=== PATIENT | male | born 1990 | race Caucasian/White ===

== ENCOUNTER 2017-05-14 20:13 | Inpatient (IN) ==
--- NOTE | 2017-05-14 20:37 | Emergency Department Note ---
Disposition Clinical Impression: Small bowel obstruction Disposition: Admitted As Inpatient Abdominal Pain HPI - General Chief Complaint: ED Abdominal Pain Stated Complaint: Needs a Ct-From [facility] Time Seen by Provider: 05/14/17 20:18 Source: patient Limitations: no limitations Nursing Notes Reviewed: Yes Vital Signs Reviewed: Yes - History of Present Illness HPI Narrative: 18-year-old male past medical history asthma presents to the emergency department with diffuse lower abdominal pain and vomiting. He had a bilateral double inguinal hernia repair by laproscopy with Dr. Gonzalez on 05/09/17. There were no complications of surgery and the patient reports that he has done well until today. He had some nausea during the past few days, but had not vomited until today. Associated symptoms include fatigue and generalized weakness. He reports that he is having bowel movements today. He denies any leakage or drainage from the incision sites. Denies fevers, chills, chest pain, dyspnea, diarrhea, constipation, hematochezia, melena, dysuria, or hematuria. He was evaluated in urgent care earlier today, and the physician spoke with Dr. Gonzalez over the phone, and she requested that he come to the emergency department for CT abdomen and pelvis and further evaluation. Pain Scale: 7 - Related Data Home Medications Medication Instructions Recorded Confirmed Albuterol Sulfate [Proair Hfa] 2 puff IH Q4H PRN 04/25/17 05/09/17 Previous Rx's Medication Instructions Recorded Docusate [Colace] 100 mg PO BID #30 capsule 05/09/17 Ibuprofen [Motrin] 600 mg PO Q8HR PRN #20 tab 05/09/17 OxyCODONE/APAP 5/325 [Percocet 1 each PO Q4HR PRN 7 Days #40 05/09/17 5/325 MG] tablet Allergies Allergy/AdvReac Type Severity Reaction Status Date / Time Penicillins AdvReac Rash Verified 05/14/17 20:14 Sulfa (Sulfonamide AdvReac Rash Verified 05/14/17 20:14 Antibiotics) All systems ED: reviewed and negative except as stated. Review of Systems: As Per HPI Abdominal Pain PMH - Past Medical History Medical history: Reports: other Male Surgical History: Reports: Tonsillectomy, other (Ear surgeries 7) Psychiatric history: Reports: no psych history - Social History Smoking status: Current every day smoker Alcohol use: Reports: occasionally Drug use: Reports: none Physical Exam - General Limitations: no limitations General appearance: alert, in no apparent distress - Head Head exam: atraumatic, normocephalic, normal inspection - Eye Eye exam: Present: normal appearance, PERRL, EOMI. Absent: scleral icterus, conjunctival injection - ENT ENT exam: mucous membranes moist - Chest Chest inspection: Present: symmetric chest wall rise - Respiratory Respiratory exam: Present: normal lung sounds bilaterally - Cardiovascular Cardiovascular exam: Present: regular rate, normal rhythm, +S1, +S2 - Abdominal Exam Abdominal exam: Present: soft, tenderness, normal bowel sounds. Absent: distention, guarding, rebound, rigidity, Luevano's sign, Rovsing's sign, tenderness at McBurney's Point Abdominal tenderness: Present: RLQ, LLQ, suprapubic, moderate - Extremities Exam Extremities exam: Present: normal inspection, full ROM, normal capillary refill. Absent: tenderness, pedal edema, calf tenderness - Back Exam Back exam: Present: normal inspection, full ROM. Absent: tenderness, CVA tenderness (R), CVA tenderness (L), paraspinal tenderness, vertebral tenderness - Neurological Exam Neurological exam: Present: alert, oriented X3 - Skin Skin exam: Present: warm, dry, intact, normal color Course Vital Signs Temperature 98.8 F 05/14/17 20:14 Pulse Rate 74 05/14/17 20:14 Respiratory Rate 20 05/14/17 20:14 Blood Pressure 130/83 05/14/17 20:14 O2 Sat by Pulse Oximetry 100 05/14/17 20:14 Temperature 99.5 F 05/14/17 23:22 Pulse Rate 80 05/14/17 23:22 Respiratory Rate 16 05/14/17 23:22 Blood Pressure 119/73 05/14/17 23:22 O2 Sat by Pulse Oximetry 98 05/14/17 23:22 Oxygen Delivery Oxygen Delivery Room Air Abdominal Pain - MDM Narrative Medical decision making narrative: CBC shows a white count of 13. Patient is afebrile. BMP unremarkable. CT abdomen and pelvis shows concerns for early partial small bowel obstruction. The patient has vomited once here in the emergency department. He was given Zofran and fentanyl. We recommend that he get an NG tube placed, however he refused the NG tube placement. Discussed the case with Dr. Gonzalez who accepts the patient for admission. - Lab Data Lab results reviewed: Yes I reviewed the patient's lab results. Result diagrams: 05/14/17 20:29 05/14/17 20:29 Lab Results 05/14/17 05/14/17 Range/Units 20:29 20:29 WBC 13.0 H (4.3-11.1) K/mcL RBC 5.05 (4.19-5.50) M/mcL Hgb 16.3 (12.9-16.9) g/dL Hct 46.1 (37.5-50.1) % MCV 91.3 (83.0-100.0) fL MCH 32.3 (28.0-33.3) pg MCHC 35.4 (31.6-35.5) g/dL RDW 12.1 (11.5-14.5) % Plt Count 243 (140-400) K/mcL MPV 11.2 (9.4-12.4) fL Immature Gran % 0.3 (0-4) % Seg Neutrophils % 89.8 % Lymphocytes % 5.8 % Monocytes % 3.5 % Eosinophils % 0.4 % Basophils % 0.2 % Neutrophils # 11.7 H (1.6-8.9) K/mcL Lymphocytes # 0.8 (0.6-4.6) K/mcL Monocytes # 0.5 (0.0-1.3) K/mcL Eosinophils # 0.1 (0.0-0.6) K/mcL Basophils # 0.0 (0.0-0.2) K/mcL Sodium 136 (136-145) mEq/L Potassium 4.1 (3.5-5.1) mEq/L Chloride 100 (98-107) mEq/L Carbon Dioxide 25 (23-29) mEq/L BUN 15 (6-20) mg/dL Creatinine 0.88 (0.70-1.30) mg/dL Est GFR ( Amer) > 60 (> 60) Est GFR (Non-Af Amer) > 60 (> 60) BUN/Creatinine Ratio 17 (6-26) Glucose 102 (70-105) mg/dL Calculated Osmolality 283 (280-300) Calcium 9.7 (8.6-10.3) mg/dL - Radiology Data Radiology results reviewed: Yes I reviewed the patient's radiology results. CT abdomen and pelvis shows concern for early partial small bowel obstruction. Attestation Statement - Attestation Attestation: I, Cosme Jones, examined this patient and my medical decision-making was reviewed with the DISASTER RECOVERY MANAGER/PA/Advanced Practice Nurse/Resident Physician. I agree with the documented findings, disposition and treatment plan as described except to the extent set forth below. 26-year-old male presents emergency Department with concerns of abdominal pain, nausea, vomiting. Patient had a bilateral inguinal hernia repair by Dr. Post within the past week. Patient denies hematochezia or melena however he does state that he had a bowel movement today. Patient vomited once in emergency department. Vital signs stable at this time. CT of the abdomen and pelvis to rule out small bowel obstruction versus ileus is pending at this time.
[2017-05-14 21:00] LABS: BUN/Creatinine Ratio 17 (6-26); Blood Urea Nitrogen 15 mg/dL (6-20); Calcium 9.7 mg/dL (8.6-10.3); Carbon Dioxide 25 mEq/L (23-29); Chloride 100 mEq/L (98-107); Glucose 102 mg/dL (70-105); Osmolality,Calculated 283 (280-300); Potassium 4.1 mEq/L (3.5-5.1); Sodium 136 mEq/L (136-145); eGFR For African Americans > 60 (> 60); eGFR For Non-African Americans > 60 (> 60)
[2017-05-14] MEDS ORDERED: Ondansetron 4 MG/2 ML VIAL IVP ONE (21:49)
[2017-05-14] MEDS ORDERED: *HR* FentaNYL (PF) 100 MCG/2 ML VIAL IVP ONE (21:49)
[2017-05-14] MEDS ORDERED: 0.9 % Sodium Chloride 1,000 ML IVC ONE (21:49)
[2017-05-14 22:14] LABS: Basophils % 0.2 %; Eosinophils # 0.1 K/mcL (0.0-0.6); Eosinophils % 0.4 %; Hematocrit 46.1 % (37.5-50.1); Hemoglobin 16.3 g/dL (12.9-16.9); Immature Granulocytes % 0.3 % (0-4); Lymphocytes # 0.8 K/mcL (0.6-4.6); Lymphocytes % 5.8 %; Mean Corpuscular HGB Conc 35.4 g/dL (31.6-35.5); Mean Corpuscular Hemoglobin 32.3 pg (28.0-33.3); Mean Corpuscular Volume 91.3 fL (83.0-100.0); Mean Platelet Volume 11.2 fL (9.4-12.4); Monocytes # 0.5 K/mcL (0.0-1.3); Monocytes % 3.5 %; Neutrophils # 11.7 K/mcL (1.6-8.9); Platelet Count 243 K/mcL (140-400); Red Blood Count 5.05 M/mcL (4.19-5.50); Red Cell Distribution Width 12.1 % (11.5-14.5); Segmented Neutrophils % 89.8 %
[2017-05-14] MEDS ORDERED: OXYCODONE Oral CONC 10 MG/0.5 ML ORAL.SYG SL PRN (23:41)
[2017-05-14] MEDS ORDERED: *HR* Promethazine 25 MG/ML VIAL IVP PRN (23:43)
[2017-05-15] MEDS: 0.9 % Sodium Chloride 1,000 ML IVC SCH ×4 (01:02→18:52)
--- NOTE | 2017-05-15 07:48 | General Surg History&Physical ---
<LarsnormanMelita junior H - Last Filed: 05/15/17 07:57> Date of Encounter: 05/15/17 Time of Encounter: 07:48 Assessment and Plan (1) Partial small bowel obstruction Current Visit: Yes Status: Acute 26-year-old male s/p robotic repair of right and left indirect inguinal hernias with mesh on 05/09/2017 who presents with lower abdominal pain, nausea, and vomiting due to partial small bowel obstruction. -NG tube -NPO -Anti-emetics -Pain control -Will discuss operative intervention with Dr. Gonzalez. Possibly today. The assessment and plan as outlined above was discussed with the patient and/or family members who expressed understanding and agreement. All questions were answered. (2) Abdominal pain Current Visit: No Status: Acute See management as above. The assessment and plan as outlined above was discussed with the patient and/or family members who expressed understanding and agreement. All questions were answered. Qualifiers: Abdominal location: left lower quadrant Qualified Code(s): R10.32 - Left lower quadrant pain (3) Nausea & vomiting Current Visit: Yes Status: Acute See management above. The assessment and plan as outlined above was discussed with the patient and/or family members who expressed understanding and agreement. All questions were answered. Qualifiers: Vomiting type: unspecified Vomiting Intractability: unspecified Qualified Code(s): R11.2 - Nausea with vomiting, unspecified (4) Asthma Current Visit: Yes Status: Chronic No acute exacerbation. Stable. The assessment and plan as outlined above was discussed with the patient and/or family members who expressed understanding and agreement. All questions were answered. Qualifiers: Asthma severity: unspecified severity Asthma persistence: unspecified Asthma complication type: unspecified Qualified Code(s): J45.909 - Unspecified asthma, uncomplicated History of Present Illness Chief complaint: Abdominal pain cause, nausea and vomiting. HPI: Mr. Brunner is a 26 year old male with past medical history of asthma who presented to [facility] on 05/14/2017 with complaints of lower abdominal pain, nausea, and vomiting. Patient states he woke up Tuesday morning with lower abdominal pain, left worse than right, and nausea and vomiting. This persisted throughout the day. He attempted to eat some granola bars which was unsuccessful. At around 8:00 in the evening, he presented to [facility] emergency department. In the emergency department , CT of the abdomen and pelvis revealed focal narrowing in the distal small bowel near the site of the right hernia repair. The proximal bowel was noted to be mildly dilated and thickened. Concerns for early partial small bowel obstruction versus enteritis. Small amount of free fluid in the pelvis. No signs of pneumoperitoneum. He had an NG tube placed and was admitted to the hospital. Mr. Brunner reporting subjective fevers during periods of emesis. He is denying any blood in his vomit or coffee-ground appearance. He is denying any diarrhea, melena, or hematochezia. He denies urinary symptoms such as dysuria or inability to initiate urination. He denies any chest pain, shortness of breath, palpitations, diaphoresis, cough, or night sweats. Mr. Brunner underwent a robotic repair of right and left indirect hernias with mesh on 05/09/[address] Gonzalez. He reports he tolerated that procedure well. Upon evaluation this morning, patient is resting comfortably. He states his nausea has improved with the NG tube. He states his pain is well controlled. Past Med Surg Social Fam HX - Past Medical History Attestation: Yes The following information was validated with the patient. Source: patient Medical history: asthma, other Psychiatric history: no psych history - Past Surgical History Surgical History: other (Tonsillectomy, adenoidectomy, ear surgery) - Social History Smoking Status: Current every day smoker Smokeless Tobacco Status: No Alcohol use: occasionally Drug use: none Medications and Allergies Albuterol Sulfate [Proair Hfa] 2 puff IH Q4H PRN 04/25/17 [History] Docusate [Colace] 100 mg PO BID #30 capsule 05/09/17 [Rx] Ibuprofen [Motrin] 600 mg PO Q8HR PRN #20 tab 05/09/17 [Rx] OxyCODONE/APAP 5/325 [Percocet 5/325 MG] 1 each PO Q4HR PRN 7 Days #40 tablet [Rx] 3 Allergy/AdvReac Type Severity Reaction Status Date / Time Penicillins AdvReac Rash Verified 05/14/17 20:14 Sulfa (Sulfonamide AdvReac Rash Verified 05/14/17 20:14 Antibiotics) Review of Systems All systems PM: The remainder of the systems were reviewed and are negative - Constitutional fever(s), no night sweats - Cardiovascular no chest pain, no dyspnea, no irregular heart rhythm, no lightheadedness, no rapid heart rate - Gastrointestinal abdominal pain, nausea, vomiting, no diarrhea, no hematemesis, no hematochezia, no loose stools, no melena - Genitourinary no dysuria, no urinary frequency, no urinary hesitancy - Musculoskeletal no abnormal gait, no numbness - Integumentary no erythema, no jaundice - Neurological no numbness, no radicular pain General Surgery Exam Initial Vital Signs Temp Pulse Resp BP Pulse Ox 98.8 F 74 20 130/83 100 05/14/17 20:14 05/14/17 20:14 05/14/17 20:14 05/14/17 20:14 05/14/17 20:14 - General physical appearance well developed, well nourished, no distress, moderate pain - Eyes normal ocular movement - Respiratory normal expansion, normal respiratory effort, clear to auscultation - Cardiovascular Cardiovascular exam: Present: RRR, no murmurs/rubs/gallops - Abdomen Abdomen general surgery: Present: bowel sounds present, soft, surgical scars. Absent: guarding, rebound, rigid Abdominal Tenderness: Present: LLQ Hernia: Present: none - Incision Incision: Present: clean and dry, intact - Integumentary Integumentary general surgery: Present: warm and dry, no abnormal pigmentation - Neurologic Present: CN 2-12 grossly intact, normal coordination - Musculoskeletal Present: normal posture - Psychiatric Psychiatric general surgery: Present: A&Ox3, speech is normal, memory intact Results - Labs 05/14/17 20:29 05/14/17 20:29 Abnormal lab results WBC 13.0 K/mcL (4.3-11.1) H 05/14/17 20:29 Neutrophils # 11.7 K/mcL (1.6-8.9) H 05/14/17 20:29 All other labs normal. <Ellen Gonzalez - Last Filed: 05/15/17 10:39> Date of Encounter: 05/15/17 Assessment and Plan (1) Abdominal pain Current Visit: No Status: Acute The assessment and plan as outlined above was discussed with the patient and/or family members who expressed understanding and agreement. All questions were answered. prn pain control, appears well controlled Qualifiers: Abdominal location: left lower quadrant Qualified Code(s): R10.32 - Left lower quadrant pain (2) Small bowel obstruction Current Visit: Yes Status: Acute The assessment and plan as outlined above was discussed with the patient and/or family members who expressed understanding and agreement. All questions were answered. patient with acute sbo, unsure of etiology - if due to inflammation due to surgery, due to hernia repair will plan diagnostic laparoscopy/robotic, possible open, risks and benefits discussed and he wishes to proceed npo ivf hydration prn pain control abx in OR gi/dvt prophylaxis continue ngt LIWS (3) Nausea & vomiting Current Visit: Yes Status: Acute The assessment and plan as outlined above was discussed with the patient and/or family members who expressed understanding and agreement. All questions were answered. prn antiemetics continue ngt LIWS Qualifiers: Vomiting type: unspecified Vomiting Intractability: unspecified Qualified Code(s): R11.2 - Nausea with vomiting, unspecified History of Present Illness HPI: Mr. Brunner is a 26 year old male who underwent a bilateral robotic inguinal hernia repair about 6 days ago by myself. He reports that yesterday he had acute onset of lower abdominal pain sharp which progressively got worse throughout the day. He started having nausea and emesis as well. He feels feverish with emesis. He went to an urgent care and they called and I instructed them to send him to the ED for imaging. CT scan showed small bowel obstruction with narrowing of small bowel near RLQ. NGT was placed when patient got to the floor and patient has had some relief but continues to have RLQ pain. Some nausea but no further emesis. No fevers. No dysuria. Passed flatus and had bm yesterday, no flatus today Past Med Surg Social Fam HX - Past Surgical History Surgical History: herniorrhaphy (robotic bilateral inguial hernia repair 05-09-17) , other - Family History Grandmother History Unknown: Yes Review of Systems All systems PM: reviewed and no additional remarkable complaints except as stated All systems PM: The remainder of the systems were reviewed and are negative General Surgery Exam Initial Vital Signs Temp Pulse Resp BP Pulse Ox 98.8 F 74 20 130/83 100 05/14/17 20:14 05/14/17 20:14 05/14/17 20:14 05/14/17 20:14 05/14/17 20:14 - General physical appearance well developed, well nourished, moderate distress, moderate pain - Eyes PERRL, normal ocular movement - ENT normal mucosa, normocephalic - Neck trachea midline - Respiratory normal expansion, clear to auscultation - Cardiovascular Cardiovascular exam: Present: RRR - Abdomen Abdomen general surgery: Present: bowel sounds present, soft, tender - Incision Incision: Present: clean and dry, intact - Integumentary Integumentary general surgery: Present: warm and dry, no abnormal pigmentation - Neurologic Present: CN 2-12 grossly intact - Musculoskeletal Present: normal posture - Psychiatric Psychiatric general surgery: Present: A&Ox3, speech is normal Results - Labs 05/15/17 07:16 05/15/17 07:16 Short CBC 05/15/17 05/14/17 Range/Units 07:16 20:29 WBC 12.2 H 13.0 H (4.3-11.1) K/mcL Hgb 14.3 D 16.3 (12.9-16.9) g/dL Hct 40.6 46.1 (37.5-50.1) % Plt Count 234 243 (140-400) K/mcL Neutrophils # 9.5 H 11.7 H (1.6-8.9) K/mcL BMP 05/15/17 05/14/17 Range/Units 07:16 20:29 Sodium 139 136 (136-145) mEq/L Potassium 3.8 4.1 (3.5-5.1) mEq/L Chloride 104 100 (98-107) mEq/L Carbon Dioxide 25 25 (23-29) mEq/L BUN 16 15 (6-20) mg/dL Creatinine 0.83 0.88 (0.70-1.30) mg/dL Glucose 94 102 (70-105) mg/dL Calcium 8.8 9.7 (8.6-10.3) mg/dL Vital Signs Temp Pulse Resp BP Pulse Ox 05/15/17 09:00 98 05/15/17 06:40 98.5 F 65 14 127/65 98 05/15/17 04:11 98.7 F 61 16 117/71 97 05/14/17 23:22 99.5 F 80 16 119/73 98 05/14/17 20:14 98.8 F 74 20 130/83 100 Intake and Output 05/14/17 05/15/17 05/15/17 22:59 07:59 15:59 Intake Total 1000 / 1000 Output Total Balance 1000 / 1000 Intake: IV Fluids 1000 / 1000 0.9 % Sodium Chloride 1,000 ML 1000 / 1000 @ 9999 mls/hr IVC .Q6M ONE Rx#: [id number] Oral Output: Urine Gastric Drainage Other: # Voids Weight Blood Glucose* - Attending Attestation I examined this patient and my medical decision-making was reviewed with the Resident Physician. I agree with the documented findings, disposition and treatment plan as described except to the extent set forth below.
--- NOTE | 2017-05-15 08:07 | Anesthesia Evaluation PreOp ---
Date of Encounter: 05/15/17 Time of Encounter: 10:16 - Past History Planned Operation: Right diagnostic laparoscopy Pulmonary History: Smoker, Asthma BI TECHNICAL LEAD History: Denies Any Significant HX Other Medical History: Denies Any Significant HX Anesthesia History: No Prior Anesthetic Complications, Past Anesthesia Alcohol Use: occasionally Drug use: none Medications and Allergies Albuterol Sulfate [Proair Hfa] 2 puff IH Q4H PRN 04/25/17 [History] Docusate [Colace] 100 mg PO BID #30 capsule 05/09/17 [Rx] Ibuprofen [Motrin] 600 mg PO Q8HR PRN #20 tab 05/09/17 [Rx] OxyCODONE/APAP 5/325 [Percocet 5/325 MG] 1 each PO Q4HR PRN 7 Days #40 tablet [Rx] 3 Allergy/AdvReac Type Severity Reaction Status Date / Time Penicillins AdvReac Rash Verified 05/14/17 20:14 Sulfa (Sulfonamide AdvReac Rash Verified 05/14/17 20:14 Antibiotics) - Meds/Allergy Pre-op Review Medications Reviewed: Yes Allergies Reviewed: Yes Beta Blockers on Current Med List: No Anesthesia Results - Labs 05/15/17 07:16 05/15/17 07:16 Anesthesia Exam Last Vital Signs Temp 98.5 F 05/15/17 06:40 Pulse 65 05/15/17 06:40 Resp 14 05/15/17 06:40 BP 127/65 05/15/17 06:40 Pulse Ox 98 05/15/17 06:40 Weight: 55 kg - HEENT Pupil (Motor): Pupils equal, EOMI Mallampati: II Teeth: Poor dentition Oral Opening: Greater than 3 - BI TECHNICAL LEAD LOC: Oriented - Cardiac Rhythm: Regular Murmur: None - Pulmonary Breath Sounds: bilateral Clear Respiratory Effort: Symmetrical Anesthesia Assess/Plan ASA Score: 2 Modified Daija Scale for Level of Consciousness: Cooperative, oriented, and tranquil Anesthetic Plan: General Monitoring Plan: Standard Monitors Recovery Plan: PACU
[2017-05-15 08:26] LABS: BUN/Creatinine Ratio 19 (6-26); Blood Urea Nitrogen 16 mg/dL (6-20); Calcium 8.8 mg/dL (8.6-10.3); Carbon Dioxide 25 mEq/L (23-29); Chloride 104 mEq/L (98-107); Glucose 94 mg/dL (70-105); Osmolality,Calculated 289 (280-300); Potassium 3.8 mEq/L (3.5-5.1); Sodium 139 mEq/L (136-145); eGFR For African Americans > 60 (> 60); eGFR For Non-African Americans > 60 (> 60)
[2017-05-15 08:36] LABS: Basophils % 0.4 %; Eosinophils % 1.1 %; Hematocrit 40.6 % (37.5-50.1); Immature Granulocytes % 0.3 % (0-4); Lymphocytes % 12.2 %; Mean Corpuscular HGB Conc 35.2 g/dL (31.6-35.5); Mean Corpuscular Hemoglobin 31.8 pg (28.0-33.3); Mean Corpuscular Volume 90.4 fL (83.0-100.0); Mean Platelet Volume 10.7 fL (9.4-12.4); Monocytes % 8.4 %; Platelet Count 234 K/mcL (140-400); Red Blood Count 4.49 M/mcL (4.19-5.50); Segmented Neutrophils % 77.6 %
[2017-05-15 08:37] LABS: Basophils # 0.1 K/mcL (0.0-0.2); Eosinophils # 0.1 K/mcL (0.0-0.6); Lymphocytes # 1.5 K/mcL (0.6-4.6); Neutrophils # 9.5 K/mcL (1.6-8.9)
[2017-05-15 08:42] LABS: Hemoglobin 14.3 g/dL (12.9-16.9)
[2017-05-15] MEDS ORDERED: Clindamycin 900 MG/50 ML 900 MG/50 ML IV.SOLN IVPB ONE ×2 (10:05→10:18)
[2017-05-15] MEDS ORDERED: Albuterol 2.5 MG/3 ML NEBULIZER ONE (10:07)
[2017-05-15] MEDS ORDERED: *HR* Midazolam HCl 2 MG/2 ML VIAL ONE (10:12)
[2017-05-15] MEDS ORDERED: *HR* FentaNYL (PF) 100 MCG/2 ML VIAL ONE ×2 (10:12→11:18)
[2017-05-15] MEDS ORDERED: *HR* Propofol 200 MG/20 ML VIAL IVP ONE ×2 (10:12→10:58)
[2017-05-15] MEDS ORDERED: Lidocaine -MPF 2% 2 ML VIAL ONE (10:14)
[2017-05-15] MEDS ORDERED: *HR* Rocuronium Bromide 50 MG/5 ML VIAL ONE (10:18)
[2017-05-15] MEDS ORDERED: *HR* Promethazine 25 MG/ML VIAL IVP PRN ×2 (10:22→13:08)
[2017-05-15] MEDS ORDERED: *HR* OxyCODONE Immed Rel 5 MG TABLET PO PRN (10:22)
[2017-05-15] MEDS ORDERED: *HR* FentaNYL (PF) 100 MCG/2 ML VIAL IVP PRN (10:23)
[2017-05-15] MEDS ORDERED: MORPHINE SUL Oral CONC 10 MG/0.5 ML ORAL.SYG SL PRN ×2 (10:23→13:08)
[2017-05-15] MEDS ORDERED: Neostigmine Methylsulfate 3 MG/3 ML SYRINGE ONE (11:00)
[2017-05-15] MEDS ORDERED: Dexamethasone 4 MG/ML VIAL ONE (11:00)
[2017-05-15] MEDS ORDERED: Ondansetron 4 MG/2 ML VIAL ONE ×2 (11:00→12:52)
[2017-05-15] MEDS ORDERED: *HR* PHENYLEPHRINE 1,000 MCG/10 ML SYRINGE IVP ONE (11:03)
[2017-05-15] MEDS ORDERED: Ketorolac 30 MG/ML VIAL ONE (11:44)
[2017-05-15] MEDS ORDERED: *HR* Succinylcholine 200 MG/10 ML VIAL IVP ONE (12:49)
--- NOTE | 2017-05-15 13:01 | Operative Note ---
Date of procedure: 05/15/17 Pre-op diagnosis: small bowel obstruction Post-op diagnosis: other (peritoneal hernia hernia causing small bowel obstruction) Procedure: Robotic diagnostic laparoscopy, reduction peritoneal hernia, repair peritoneal hernia with mesh Complications: none immediate Anesthesia: GETA, local Local Anesthetics: 0.5% Sensorcaine HCL SubQ (cc) (18) Surgeon: Ellen Gonzalez Was there an school health assistant present: Yes Assisted Living Administrator: Verito Matias Estimated blood loss (cc): 5 Urine output (cc): 180 Specimen: none Condition: stable Disposition: PACU Procedure in Detail: Patient was brought to the operating suite and placed supine on the operating table. Sign in was performed and everyone was in agreement. Anesthesia was induced and patient was endotracheally intubated by anesthesia without incident. His abdomen and bilateral groin were shaved. His abdomen was prepped and draped in the usual sterile fashion. Timeout was performed again everyone was in agreement. An incision of the left upper quadrant through the previous incision site was made with an 11 blade. A Veress needle was placed through this and a water drop test confirmed placement and the abdomen was insufflated. We entered the abdomen with a 5 mm 0 degree laparoscope on an XL trocar. The area under entry was visualized there was no apparent bleeding or bowel injury. The patient was placed in Trendelenburg position. A loop of small bowel was adherent in the right groin area at the previous robotic inguinal hernia repair. The upper midline incision from the previous surgery was opened with an 11 blade. A 12 mm port was placed through this under direct visualization. The small bowel was grasped with a laparoscopic DeBakey and freely and easily came off the abdominal wall in the right groin. There was a circular hole in the peritoneum about 2 cm in size that the small bowel had herniated through, but the mesh and previous hernia repair otherwise were intact. It appeared that only a portion of the wall had herniated through the peritoneum causing the obstruction. The small bowel was evaluated and although slightly inflamed there were no signs of ischemia, no signs of bowel injury. Due to inflammation the omentum was not giving and was unable to be pulled together to close the peritoneal defect. A 8 mm robotic port was placed in the right upper quadrant to the previous incision site after first incising the skin with an 11 blade. The left upper quadrant 5 mm port was exchanged for an 8 mm robotic port under direct visualization. The patient was placed in steeper Trendelenburg position. The robot was brought over the patient's abdomen and docked. A trimmed 9 cm round [employer] mesh was placed into the abdominal cavity with an 0 Vicryl stitch tied to the superior aspect. The mesh was then sutured circumferentially to the peritoneum covering the peritoneal defect. Any excess mesh was trimmed with the robotic scissors. The suture and trimmed mesh pieces were removed from the peritoneal cavity. The patient was placed in reverse Trendelenburg and omentum was brought over the small bowel covering the mesh. All lap and instrument counts were correct at the end of the case. The patient tolerated the procedure well. He was taken to PACU in stable condition after being awoken by anesthesia and extubated in the OR.
[2017-05-15] MEDS ORDERED: OXYCODONE Oral CONC 10 MG/0.5 ML ORAL.SYG SL PRN (13:08)
[2017-05-15] MEDS ORDERED: Naloxone 0.4 MG/ML INJ IVP PRN (13:08)
[2017-05-15] MEDS ORDERED: Ondansetron 4 MG/2 ML VIAL IVP PRN (13:08)
[2017-05-15] MEDS ORDERED: 0.9 % Sodium Chloride 500 ML ONE (13:46)
--- NOTE | 2017-05-15 13:53 | Anesthesia Evaluation Post Op ---
Date of Encounter: 05/15/17 Time of Encounter: 13:50 - Vital Signs Vital Signs: Last Vital Signs Temp 98.7 F 05/15/17 13:38 Pulse 75 05/15/17 13:38 Resp 16 05/15/17 13:38 BP 119/66 05/15/17 13:38 Pulse Ox 98 05/15/17 13:38 - Lungs Lungs: Clear Ascult./Percussion - Airway Airway: Non-obstructed - Cardiovascular Regular Rate - Mental Status Mental Status: Alert & Oriented, Answers Appropriately - Pain Pain Scale: 3 - Nausea Vomiting Nausea Vomiting: Not Present - Hydration Hydration: NPO - Discharge PostOp Status: Transfer Patient to floor
[2017-05-15] MEDS: Meropenem 1,000 MG in Water for inj. (sterile) 20 ML 10 ML IVP SCH ×2 (16:14→23:04)
[2017-05-15 18:23] LABS: Basophils % 0.2 %; Eosinophils % 0.1 %; Hematocrit 36.8 % (37.5-50.1); Hemoglobin 13.1 g/dL (12.9-16.9); Immature Granulocytes % 0.2 % (0-4); Lymphocytes # 0.8 K/mcL (0.6-4.6); Lymphocytes % 7.4 %; Mean Corpuscular HGB Conc 35.6 g/dL (31.6-35.5); Mean Corpuscular Hemoglobin 32.3 pg (28.0-33.3); Mean Corpuscular Volume 90.9 fL (83.0-100.0); Mean Platelet Volume 10.4 fL (9.4-12.4); Monocytes # 0.7 K/mcL (0.0-1.3); Monocytes % 6.3 %; Neutrophils # 9.5 K/mcL (1.6-8.9); Platelet Count 201 K/mcL (140-400); Red Blood Count 4.05 M/mcL (4.19-5.50); Red Cell Distribution Width 12.2 % (11.5-14.5); Segmented Neutrophils % 85.8 %
[2017-05-16] MEDS: 0.9 % Sodium Chloride 1,000 ML IVC SCH (04:50)
[2017-05-16 06:07] LABS: Basophils # 0.1 K/mcL (0.0-0.2); Basophils % 0.4 %; Eosinophils # 0.3 K/mcL (0.0-0.6); Eosinophils % 2.4 %; Hematocrit 36.2 % (37.5-50.1); Hemoglobin 12.5 g/dL (12.9-16.9); Immature Granulocytes % 0.3 % (0-4); Lymphocytes # 2.6 K/mcL (0.6-4.6); Lymphocytes % 20.8 %; Mean Corpuscular HGB Conc 34.5 g/dL (31.6-35.5); Mean Corpuscular Hemoglobin 32.1 pg (28.0-33.3); Mean Corpuscular Volume 92.8 fL (83.0-100.0); Mean Platelet Volume 10.8 fL (9.4-12.4); Monocytes # 1.4 K/mcL (0.0-1.3); Monocytes % 11.1 %; Platelet Count 179 K/mcL (140-400); Red Cell Distribution Width 12.5 % (11.5-14.5)
[2017-05-16 06:24] LABS: BUN/Creatinine Ratio 22 (6-26); Blood Urea Nitrogen 17 mg/dL (6-20); Calcium 8.4 mg/dL (8.6-10.3); Carbon Dioxide 25 mEq/L (23-29); Chloride 107 mEq/L (98-107); Glucose 91 mg/dL (70-105); Magnesium 1.9 mg/dL (1.6-2.6); Osmolality,Calculated 293 (280-300); Phosphorous 2.5 mg/dL (2.7-4.5); Potassium 3.8 mEq/L (3.5-5.1); Sodium 141 mEq/L (136-145); eGFR For African Americans > 60 (> 60); eGFR For Non-African Americans > 60 (> 60)
[2017-05-16] MEDS: Meropenem 1,000 MG in Water for inj. (sterile) 20 ML 10 ML IVP SCH (08:07)
[2017-05-16] MEDS: Pantoprazole 40 MG VIAL IVP SCH (08:07)
--- NOTE | 2017-05-16 10:07 | General Surgery Progress Note ---
Date of Encounter: 05/16/17 Time of Encounter: 10:07 - Assessment and Plan (1) Partial small bowel obstruction Current Visit: Yes Status: Acute Date of procedure: 05/15/17 Pre-op diagnosis: small bowel obstruction Post-op diagnosis: other (peritoneal hernia hernia causing small bowel obstruction) Procedure: #1Robotic diagnostic laparoscopy, #2 reduction peritoneal hernia, # 3 repair peritoneal hernia with mesh Complications: none immediate POD #1 as above. Abdominal exam is WNL; gastric output since Midnight aprox 18ML /hr. Denies n/v. Endorses flatus and well controlled abdominal pain. No distention. Plan: Clamp NG and trial clears. If he tolerates, will likely pull NG later today and advance diet Ambulate in halls TID Up to chair for all meals and at least TID continue G.I. and DVT prophylaxis. Continue supportive care and discomfort management. Continue Meropenem per IV Repeat AM labs IS Q1H while awake (2) Postoperative complication Current Visit: Yes Status: Acute Per operative notes, A loop of small bowel was adherent in the right groin area at the previous robotic inguinal hernia repair. There was a circular hole in the peritoneum about 2 cm in size that the small bowel had herniated through, but the mesh and previous hernia repair otherwise were intact. It appeared that only a portion of the wall had herniated through the peritoneum causing the obstruction. The small bowel was evaluated and although slightly inflamed there were no signs of ischemia, no signs of bowel injury. Due to inflammation the omentum was not giving and was unable to be pulled together to close the peritoneal defect. A trimmed 9 cm round [employer] mesh was placed into the abdominal cavity with an 0 Vicryl stitch tied to the superior aspect. See a/p above for surgical procedure and recommendations Qualifiers: Surgical complication system/body Area: digestive system Surgical complication type: intestinal obstruction Intestinal obstruction extent: partial Qualified Code(s): K91.31 - Postprocedural partial intestinal obstruction Subjective Patient reports: no new complaints, feels better, still having pain, pain is less, voiding w/o difficulty, flatus, no bowel movement, afebrile Narrative: Denies nausea. States he started passing gas this am around 1:30 am and started small but has "sounded like trumpets" a couple times this morning. Objective Vital Signs - Last 8 Hours Temp Pulse Resp BP Pulse Ox 03/12/18 06:54 97.9 F 68 18 122/70 97 05/16/17 04:55 98.3 F 64 14 129/75 97 Intake and Output 05/15/17 05/16/17 05/16/17 23:59 07:59 15:59 Intake Total 20 1000 / 1000 10 / 10 Output Total 0 / 0 500 / 500 Balance / 20 500 / 500 10 / 10 Intake: IV Fluids 1000 / 1000 10 / 10 0.9 % Sodium Chloride 1,000 ML 1000 / 1000 @ 100 mls/hr IVC .Q10H [facility] Rx#: [id number] Merrem 1,000 MG In Water for inj. (sterile) 10 ML @ 200 mls/ hr IVP Q8HR [facility] Rx#:[id number] Oral 0 / 0 0 / 0 0 / 0 Output: Urine 0 / 0 300 / 300 Gastric Drainage 200 / 200 Other: Meal NPO Percent of Meal Consumed 0% Weight 50.8 kg Blood Glucose* 113 94 Patient Weight 05/16/17 23:59 Weight 50.8 kg VITAL SIGNS: Reviewed. See [facility] GENERAL: In no apparent distress. HEENT: Normocephalic, atraumatic, pupils are equal and reactive, extraocular motions intact, oropharynx is pink and moist, there is no neck adenopathy or JVD noted. CHEST/RESPIRATORY: The thorax is free from signs of trauma. Lung sounds: clear to auscultation, normal respiratory effort CARDIAC: Regular rate and rhythm. Normal S1 and S2, without murmurs, gallops, or rubs. VASCULAR: No Edema. 2+ peripheral pulses. ABDOMEN: soft, active bowel sounds, nondistended, no abnormal discoloration. INCISION: Surgical incision is clean, dry, and intact. There are no signs of cellulitis or infection noted. WOUNDS/DRAINS: NG tube noted with 200 ML bilious output since Midnight. MUSCULOSKELETAL: Good range of motion of all major joints. Extremities without clubbing, cyanosis or edema. NEUROLOGIC EXAM: Alert and oriented x 3. Speech normal. Follows commands. PSYCHIATRIC: Mood normal. SKIN: No rash or lesions. - Labs 05/16/17 05:26 05/16/17 05:26 Diabetes panel 05/16/17 Range/Units 05:26 Sodium 141 (136-145) mEq/L Potassium 3.8 (3.5-5.1) mEq/L Chloride 107 (98-107) mEq/L Carbon Dioxide 25 (23-29) mEq/L BUN 17 (6-20) mg/dL Creatinine 0.78 (0.70-1.30) mg/dL Glucose 91 (70-105) mg/dL Calcium 8.4 L (8.6-10.3) mg/dL Calcium panel 05/16/17 Range/Units 05:26 Calcium 8.4 L (8.6-10.3) mg/dL Phosphorus 2.5 L (2.7-4.5) mg/dL Pituitary panel 05/16/17 Range/Units 05:26 Sodium 141 (136-145) mEq/L Potassium 3.8 (3.5-5.1) mEq/L Chloride 107 (98-107) mEq/L Carbon Dioxide 25 (23-29) mEq/L BUN 17 (6-20) mg/dL Creatinine 0.78 (0.70-1.30) mg/dL Glucose 91 (70-105) mg/dL Calcium 8.4 L (8.6-10.3) mg/dL Adrenal panel 05/16/17 Range/Units 05:26 Sodium 141 (136-145) mEq/L Potassium 3.8 (3.5-5.1) mEq/L Chloride 107 (98-107) mEq/L Carbon Dioxide 25 (23-29) mEq/L BUN 17 (6-20) mg/dL Creatinine 0.78 (0.70-1.30) mg/dL Glucose 91 (70-105) mg/dL Calcium 8.4 L (8.6-10.3) mg/dL - VTE Documentation of Mechanical Device: Intermittent pneumatic compression device Consult Discharge Plan - Plan Referrals: Kristin Sloan, GREG [Primary Care Provider] -
[2017-05-16] MEDS ORDERED: 0.9 % Sodium Chloride 1,000 ML IVC SCH (13:52)
[2017-05-16] MEDS ORDERED: Ibuprofen 600 MG TABLET PO PRN (15:23)
[2017-05-16] MEDS ORDERED: *HR* OxyCODONE/APAP 5/325 TABLET PO PRN (15:23)
[2017-05-16] MEDS ORDERED: Ondansetron ODT 4 MG TAB.RAPDIS SL PRN (15:26)
[2017-05-16] MEDS ORDERED: Ondansetron 4 MG/2 ML VIAL IVP PRN (15:28)
[2017-05-16] MEDS ORDERED: OXYCODONE Oral CONC 10 MG/0.5 ML ORAL.SYG SL PRN (15:29)
[2017-05-16] MEDS: MetroNIDAZOLE 500 MG/100 ML 500 MG/100 ML BAG IVPB SCH (16:14)
[2017-05-17 05:25] LABS: Basophils # 0.1 K/mcL (0.0-0.2); Basophils % 0.5 %; Eosinophils # 0.4 K/mcL (0.0-0.6); Eosinophils % 4.8 %; Hematocrit 34.6 % (37.5-50.1); Hemoglobin 12.3 g/dL (12.9-16.9); Immature Granulocytes % 0.3 % (0-4); Lymphocytes # 2.6 K/mcL (0.6-4.6); Lymphocytes % 27.8 %; Mean Corpuscular HGB Conc 35.5 g/dL (31.6-35.5); Mean Corpuscular Hemoglobin 32.4 pg (28.0-33.3); Mean Corpuscular Volume 91.1 fL (83.0-100.0); Mean Platelet Volume 10.5 fL (9.4-12.4); Monocytes # 0.9 K/mcL (0.0-1.3); Monocytes % 9.6 %; Neutrophils # 5.3 K/mcL (1.6-8.9); Platelet Count 178 K/mcL (140-400); Red Cell Distribution Width 12.5 % (11.5-14.5)
[2017-05-17 05:43] LABS: BUN/Creatinine Ratio 18 (6-26); Blood Urea Nitrogen 12 mg/dL (6-20); Calcium 8.5 mg/dL (8.6-10.3); Carbon Dioxide 27 mEq/L (23-29); Chloride 104 mEq/L (98-107); Glucose 97 mg/dL (70-105); Magnesium 1.7 mg/dL (1.6-2.6); Osmolality,Calculated 284 (280-300); Phosphorous 2.3 mg/dL (2.7-4.5); Potassium 3.6 mEq/L (3.5-5.1); Sodium 137 mEq/L (136-145); eGFR For African Americans > 60 (> 60); eGFR For Non-African Americans > 60 (> 60)
[2017-05-17] MEDS: MetroNIDAZOLE 500 MG/100 ML 500 MG/100 ML BAG IVPB SCH ×2 (07:52)
[2017-05-17] MEDS: Pantoprazole 40 MG VIAL IVP SCH (07:53)
[2017-05-17 10:50] VITALS: BP 136/82
--- NOTE | 2017-05-17 10:52 | Discharge Summary ---
Date of Encounter: 05/17/17 Time of Encounter: 10:54 - Discharge Diagnosis (1) Partial small bowel obstruction Priority: Primary Status: Resolved (2) Postoperative complication Priority: Primary Status: Resolved Qualifiers: Surgical complication system/body Area: digestive system Surgical complication type: intestinal obstruction Intestinal obstruction extent: partial Qualified Code(s): K91.31 - Postprocedural partial intestinal obstruction General Surgery Exam Initial Vital Signs Temp Pulse Resp BP Pulse Ox 98.8 F 74 20 130/83 100 05/14/17 20:14 05/14/17 20:14 05/14/17 20:14 05/14/17 20:14 05/14/17 20:14 VITAL SIGNS: Reviewed. See [facility] GENERAL: In no apparent distress. HEENT: Normocephalic, atraumatic, pupils are equal and reactive, extraocular motions intact, oropharynx is pink and moist, there is no neck adenopathy or JVD noted. CHEST/RESPIRATORY: The thorax is free from signs of trauma. Lung sounds: clear to auscultation, normal respiratory effort CARDIAC: Regular rate and rhythm. Normal S1 and S2, without murmurs, gallops, or rubs. VASCULAR: No Edema. 2+ peripheral pulses. ABDOMEN: soft, expected postoperative tenderness, incisions are clean, dry, intact. Active bowel sounds in all 4 quadrants. Endorses flatus INCISION: Surgical incision is clean, dry, and intact. There are no signs of cellulitis or infection noted. MUSCULOSKELETAL: Good range of motion of all major joints. Extremities without clubbing, cyanosis or edema. NEUROLOGIC EXAM: Alert and oriented x 3. Speech normal. Follows commands. PSYCHIATRIC: Mood normal. SKIN: No rash or lesions. - Hospital Course Hospital course: Mr. Brunner is a 26 year old male who presented on 05/15/2017 with a diagnosis of a small bowel obstruction. He was status post robotic repair of right and left indirect inguinal hernia is with mesh on 05/09/2017 and reported lower abdominal pain, nausea, and vomiting. And NG tube was placed, he was made NPO, and he was supported. He was taken to the operating room later that day where he underwent a robotic diagnostic laparoscopy, reduction of the peritoneal hernia, and repair of the peritoneal hernia with mesh. There was no bowel perforation noted. He was placed on meropenem prophylactically, and this was changed to Cipro and Flagyl on 05/16/2017. His NG was D/C'd on 05/16/2017 in the remainder of his hospital course has been unremarkable. He is ambulating and voiding without difficulty, tolerating a soft diet without nausea or vomiting, endorses flatus, but denies bowel movement, his abdominal discomfort is well controlled on the current regimen, his vital signs are stable and he is afebrile. We will begin discharge planning to home with a follow-up in the office as previously scheduled on 05/23/2017. His recommended to continue his previously prescribed Percocet if needed otherwise he may take [id number] ibuprofen and/or Tylenol for discomfort. Time spent discussing smoking cessation with patient: 3 to 10 minutes - Time Spent with Patient Total time spent providing and/or coordinating discharge services: Less than 30 minutes - Discharge Medications Prescriptions: Ciprofloxacin [Cipro] 500 mg PO BID #14 tablet metroNIDAZOLE [Metronidazole] 500 mg PO TID #21 tablet Polyethylene Glycol 3350 [MiraLAX Powder Bulk 17.9 Oz] 1 scoop PO DAILY PRN # 510 gm PRN Reason: Constipation Home Medications: Albuterol Sulfate [Proair Hfa] 2 puff IH Q4H PRN 04/25/17 [History] Docusate [Colace] 100 mg PO BID #30 capsule 05/09/17 [Rx] Ibuprofen [Motrin] 600 mg PO Q8HR PRN #20 tab 05/09/17 [Rx] OxyCODONE/APAP 5/325 [Percocet 5/325 MG] 1 each PO Q4HR PRN 7 Days #40 tablet [Rx] Ciprofloxacin [Cipro] 500 mg PO BID #14 tablet 05/17/17 [Rx] Polyethylene Glycol 3350 [MiraLAX Powder Bulk 17.9 Oz] 1 scoop PO DAILY PRN # 510 gm 05/17/17 [Rx] metroNIDAZOLE [Metronidazole] 500 mg PO TID #21 tablet 05/17/17 [Rx] Allergies/Adverse Reactions: 3 Allergy/AdvReac Type Severity Reaction Status Date / Time Penicillins AdvReac Rash Verified 05/15/17 15:34 Sulfa (Sulfonamide AdvReac Rash Verified 05/15/17 15:34 Antibiotics) Date of admission: 05/15/17 10:13 Primary care physician: Kristin Sloan Discharging clinician: Ellen Mata) Anticipated date of discharge: 05/17/17 Labs on day of discharge: Labs from last 24 hours 05/17/17 05/17/17 05:01 05:01 WBC 9.3 RBC 3.80 L Hgb 12.3 L Hct 34.6 L MCV 91.1 MCH 32.4 MCHC 35.5 RDW 12.5 Plt Count 178 MPV 10.5 Immature Gran % 0.3 Seg Neutrophils % 57.0 Lymphocytes % 27.8 Monocytes % 9.6 Eosinophils % 4.8 Basophils % 0.5 Neutrophils # 5.3 Lymphocytes # 2.6 Monocytes # 0.9 Eosinophils # 0.4 Basophils # 0.1 Sodium 137 Potassium 3.6 Chloride 104 Carbon Dioxide 27 BUN 12 Creatinine 0.68 L Est GFR ( Amer) > 60 Est GFR (Non-Af Amer) > 60 BUN/Creatinine Ratio 18 Glucose 97 Calculated Osmolality 284 Calcium 8.5 L Phosphorus 2.3 L Magnesium 1.7 - Patient Status Disposition: Home, Self-Care Condition: Good Functional capacity at discharge: independent ambulation Overall status at discharge: patient is progressing back to baseline - Discharge Instructions Instructions: Cigarette Smoking and Your Health (GEN), How to Stop Smoking (GEN ) Follow Up With: Kristin Sloan CNP [Primary Care Provider] - Maya Mayen CNP [Advanced Practice Nurse] - 05/23/17 11:00 am Forms: ED Satisfaction Letter, Work/School Release Additional Instructions: General Surgical Discharge Instructions 1. No pushing, pulling, or lifting greater than 15 lbs for 6 weeks (depending upon procedure). 2. You may shower beginning today, but no tub baths, soaking, or swimming for 2 weeks. 3. You may resume driving when you are off narcotics and are safe to react in a car. 4. Take ibuprofen every 8 hours for discomfort. If this does not relieve discomfort, you may take the as needed Percocet (continue the prescription you had at home). Take narcotics only as directed. Do not take more narcotics then directed and do not share your narcotics with any other person. Do not drink alcohol while on narcotics. 5. Take stool softeners (Colace) or a water based laxative (Miralax) while taking narcotics. You may hold for loose stools. 6. Report any fevers greater than 100.5F, increase abdominal discomfort, drainage that looks like pus, increased redness or pain at the surgical site, or any vomiting. 7. Report any pain in the calves, shortness of breath, or rapid heartbeat. 8. Follow-up in the office as directed. 9. If you were prescribed antibiotics, do not stop them without talking to your provider. 10. DO NOT DRINK ANY ALCOHOL while taking metronidazole and refrain from drinking alcohol for 48 hours once completed. - Diet and Activity Activity: increase activity as tolerated Diet: advance to your usual diet
== END 2017-05-17 14:11 | disposition home or self-care (01) | DRG 355 ==
LOC: EMEROO 20:13 → 3ANU 20:13
PROVIDERS: ADMIT Surgery; ATTEND Surgery